=== PATIENT | male | born 1945 | race Caucasian/White ===

== ENCOUNTER → 2021-11-13 | Outpatient (CLI) | payer MEDICARE, BC, MEDICAID ==
[2021-11-13 09:27] LABS: CALCIUM 9.5 mg/dL (8.3-10.5); POTASSIUM 3.5 mmol/L (3.5-5.1)
== END ==
LOC: LAB 06:45
PROVIDERS: Family Medicine
DX: N18.30 Chronic kidney disease, stage 3 unspecified (principal)

== ENCOUNTER → 2021-11-24 | Outpatient (CLI) | payer MEDICARE, BC, MEDICAID ==
[2021-11-24 10:43] LABS: POTASSIUM 3.9 mmol/L (3.5-5.1)
[2021-11-24 10:44] LABS: ALBUMIN 3.3 g/dL (3.4-4.8)
[2021-11-24 10:45] LABS: CALCIUM 9.9 mg/dL (8.3-10.5)
[2021-11-24 10:46] LABS: TOTAL PROTEIN 7.9 g/dL (6.2-8.1)
[2021-11-24 10:48] LABS: TOTAL BILIRUBIN 0.5 mg/dL (0.2-1.2)
[2021-11-24 10:53] LABS: MAGNESIUM 1.81 mg/dL (1.60-2.60)
== END ==
LOC: LAB 10:29
PROVIDERS: Internal Medicine Adult Congenital Heart Disease
DX: E11.59 Type 2 diabetes mellitus with other circulatory complications (principal); I15.2 Hypertension secondary to endocrine disorders

== ENCOUNTER → 2021-12-08 | Outpatient (CLI) | payer MEDICARE, BC, MEDICAID ==
[2021-12-09 01:02] LABS: PH-URINE 7.5 (5.0 - 8.0); URINE APPEARANCE CLEAR; URINE BILIRUBIN NEGATIVE (NEGATIVE); URINE BLOOD NEGATIVE (NEGATIVE); URINE COLOR YELLOW; URINE GLUCOSE NEGATIVE (NEGATIVE); URINE KETONE NEGATIVE (NEGATIVE); URINE LEUKOCYTE ESTERASE NEGATIVE (NEGATIVE); URINE NITRATE NEGATIVE (NEGATIVE); URINE PROTEIN(semi-quant) TRACE (NEGATIVE); URINE UROBILINOGEN NORMAL (NORMAL); URINE WBC 0-1 /hpf (0-3)
== END ==
LOC: LAB 23:52
PROVIDERS: Family Medicine
DX: G20 Parkinson's disease (principal)

== ENCOUNTER → 2021-12-24 | Outpatient (CLI) | payer MEDICARE, BC, MEDICAID | LOC: LAB 14:06 | DX: E55.9 Vitamin D deficiency, unspecified (principal) ==

== ENCOUNTER → 2022-01-04 | Outpatient (CLI) | payer MEDICARE, MEDICAID ==
[2022-01-04 22:37] LABS: BASO # 0.04 K/mm3 (0.02-0.10); EOS # 0.31 K/mm3 (0.04-0.40); EOS % 4.2 % (0.0-4.0); HEMATOCRIT 39.6 % (42.0-52.0); HEMOGLOBIN 13.1 g/dL (13.5-18.0); LYMPH# 1.81 K/mm3 (1.50-4.00); MEAN CELL VOLUME 91 fl (78-100); MEAN CORPUSCULAR HEMOGLOBIN 30 pg (27-31); MEAN CORPUSCULAR HGB CONC 33 g/dL (33-37); MEAN PLATELET VOLUME 11.1 fl (7.4-10.4); MONO # 0.72 K/mm3 (0.20-0.80); NEU # 4.47 K/mm3 (1.40-6.50); PLATELET COUNT 181 K/mm3 (130-400); RED BLOOD COUNT 4.37 M/mm3 (4.20-5.60); RED CELL DISTRIBUTION WIDTH 14.1 % (11.5-14.5); WHITE BLOOD COUNT 7.4 K/mm3 (4.8-10.8)
[2022-01-04 22:41] LABS: ALBUMIN 2.9 g/dL (3.4-4.8); POTASSIUM 3.5 mmol/L (3.5-5.1)
[2022-01-04 22:43] LABS: CALCIUM 9.2 mg/dL (8.3-10.5)
[2022-01-04 22:44] LABS: TOTAL PROTEIN 6.6 g/dL (6.2-8.1)
[2022-01-04 22:46] LABS: TOTAL BILIRUBIN 0.4 mg/dL (0.2-1.2)
[2022-01-04 23:36] LABS: URINE APPEARANCE CLOUDY; URINE BILIRUBIN NEGATIVE (NEGATIVE); URINE BLOOD 50 ery/uL (NEGATIVE); URINE COLOR YELLOW; URINE GLUCOSE NEGATIVE (NEGATIVE); URINE KETONE NEGATIVE (NEGATIVE); URINE LEUKOCYTE ESTERASE 2+ (NEGATIVE); URINE NITRATE NEGATIVE (NEGATIVE); URINE PROTEIN(semi-quant) 3+ (NEGATIVE); URINE UROBILINOGEN NORMAL (NORMAL)
[2022-01-04 23:37] LABS: URINE WBC >50 /hpf (0-3)
== END ==
LOC: LAB 22:09
PROVIDERS: Family Medicine
DX: E11.21 Type 2 diabetes mellitus with diabetic nephropathy (principal); I95.9 Hypotension, unspecified; I50.9 Heart failure, unspecified; R41.82 Altered mental status, unspecified

== ENCOUNTER → 2022-01-26 | Outpatient (CLI) | payer MEDICARE, MEDICAID ==
[2022-01-26 16:01] LABS: URINE APPEARANCE HAZY; URINE BILIRUBIN NEGATIVE (NEGATIVE); URINE BLOOD TRACE (NEGATIVE); URINE COLOR YELLOW; URINE KETONE NEGATIVE (NEGATIVE); URINE LEUKOCYTE ESTERASE 2+ (NEGATIVE); URINE NITRATE NEGATIVE (NEGATIVE); URINE PROTEIN(semi-quant) NEGATIVE (NEGATIVE); URINE UROBILINOGEN NORMAL (NORMAL); URINE WBC 31-50 /hpf (0-3)
== END ==
LOC: LAB 14:55
PROVIDERS: Family Medicine
DX: F03.91 Unspecified dementia, unspecified severity, with behavioral disturbance (principal); N39.0 Urinary tract infection, site not specified

== ENCOUNTER → 2022-02-24 | Outpatient (CLI) | payer MEDICARE, MEDICAID ==
[~2022-02-24] MED LIST: ACETAMINOPHEN325 M1 PO; ADULT ASPIRIN R81 MG PO; ALLER-FLO15.8 ML NS; ARICEPT10 M1 PO; ARICEPT5 M1 PO; BENTYL 20MG20 MG/TAB PO; CALCIUM CARBONATE PO; CLONAZEPAM0.5 M1 PO; DEBROX OT; DIVALPROEX SOD250 MG PO; DULCOLAX S10 MG/SUPP RC; FLEET ENEM1 BOT/133 RC; FLOMAX0.4 MG PO; GOOD NEIGH1200 MG/15 PO; HYDROCORTISONE1 EAC1 TP; KLONOPIN 1MG1 MG PO; LANTUS SOLOS100 U/ML SQ; LASIX20 M1 PO; LEXAPRO 10MG10 MG PO; LIDODERM1 EACH TP; LIPITOR 40MG TA40 MG PO; LOPRESSOR 225 MG/TAB PO; MELATIN 3 MG-11 TAB PO; NEURONTIN100 M1 PO; NOVOLOG 100U100 U/ML; NOVOLOG 100U100 U/ML SQ; NYSTATIN OINTME15 GM TOP; PACERONE200 MG PO; PRILOSEC OTC20 MG PO; SEROQUEL 2525 MG/TAB PO; SINEMET 25-1001 EACH PO; SULFAZINE500 MG PO; VITAMIN D3125 MC3 PO; VOLTAREN ARTHRI20 GM TP
[2022-02-24 14:04] LABS: POTASSIUM 4.1 mmol/L (3.5-5.1)
[2022-02-24 14:05] LABS: ALBUMIN 3.2 g/dL (3.4-4.8)
[2022-02-24 14:06] LABS: CALCIUM 9.3 mg/dL (8.3-10.5)
[2022-02-24 14:07] LABS: TOTAL PROTEIN 6.5 g/dL (6.2-8.1)
[2022-02-24 14:09] LABS: TOTAL BILIRUBIN 0.4 mg/dL (0.2-1.2)
[2022-02-24 14:14] LABS: MAGNESIUM 1.53 mg/dL (1.60-2.60)
== END ==
LOC: LAB 12:57
PROVIDERS: Family Medicine
DX: I48.91 Unspecified atrial fibrillation (principal); E83.42 Hypomagnesemia

== ENCOUNTER 2022-03-23 19:11 | Emergency (ER) | payer MEDICARE, MEDICAID ==
[~2022-03-23] VITALS: Ht 177.8 cm; Wt 95.0 kg
[2022-03-23] MEDS ORDERED: ACETAMINOPHEN325 M1 PO (19:47)
[2022-03-23] MEDS ORDERED: ADULT ASPIRIN R81 MG PO (19:48)
[2022-03-23] MEDS ORDERED: PACERONE200 MG PO (19:48)
[2022-03-23] MEDS ORDERED: ARICEPT5 M1 PO (19:48)
[2022-03-23] MEDS ORDERED: LIPITOR 40MG TA40 MG PO (19:48)
[2022-03-23] MEDS ORDERED: ARICEPT10 M1 PO (19:48)
[2022-03-23] MEDS ORDERED: CALCIUM CARBONATE PO (19:49)
[2022-03-23] MEDS ORDERED: SINEMET 25-1001 EACH PO (19:50)
[2022-03-23] MEDS ORDERED: DEBROX OT (19:51)
[2022-03-23] MEDS ORDERED: BENTYL 20MG20 MG/TAB PO (19:52)
[2022-03-23] MEDS ORDERED: DIVALPROEX SOD250 MG PO (19:52)
[2022-03-23] MEDS ORDERED: DULCOLAX S10 MG/SUPP RC (19:52)
[2022-03-23] MEDS ORDERED: FLEET ENEM1 BOT/133 RC (19:53)
[2022-03-23] MEDS ORDERED: LEXAPRO 10MG10 MG PO (19:53)
[2022-03-23] MEDS ORDERED: NEURONTIN100 M1 PO (19:54)
[2022-03-23] MEDS ORDERED: LASIX20 M1 PO (19:54)
[2022-03-23] MEDS ORDERED: ALLER-FLO15.8 ML NS (19:54)
[2022-03-23] MEDS ORDERED: LANTUS SOLOS100 U/ML SQ (19:55)
[2022-03-23] MEDS ORDERED: HYDROCORTISONE1 EAC1 TP (19:55)
[2022-03-23] MEDS ORDERED: LIDODERM1 EACH TP (19:56)
[2022-03-23] MEDS ORDERED: CLONAZEPAM0.5 M1 PO (19:56)
[2022-03-23] MEDS ORDERED: KLONOPIN 1MG1 MG PO (19:56)
[2022-03-23] MEDS ORDERED: LOPRESSOR 225 MG/TAB PO (19:57)
[2022-03-23] MEDS ORDERED: MELATIN 3 MG-11 TAB PO (19:57)
[2022-03-23] MEDS ORDERED: NOVOLOG 100U100 U/ML SQ ×2 (19:58→19:59)
[2022-03-23] MEDS ORDERED: GOOD NEIGH1200 MG/15 PO (19:58)
[2022-03-23] MEDS ORDERED: NOVOLOG 100U100 U/ML (19:59)
[2022-03-23] MEDS ORDERED: SULFAZINE500 MG PO (20:00)
[2022-03-23] MEDS ORDERED: PRILOSEC OTC20 MG PO (20:00)
[2022-03-23] MEDS ORDERED: NYSTATIN OINTME15 GM TOP (20:00)
[2022-03-23] MEDS ORDERED: SEROQUEL 2525 MG/TAB PO (20:00)
[2022-03-23] MEDS ORDERED: VITAMIN D3125 MC3 PO (20:01)
[2022-03-23] MEDS ORDERED: FLOMAX0.4 MG PO (20:01)
[2022-03-23] MEDS ORDERED: VOLTAREN ARTHRI20 GM TP (20:02)
[2022-03-23 20:14] LABS: BASO # 0.04 K/mm3 (0.02-0.10); EOS % 3.1 % (0.0-4.0); HEMATOCRIT 45.7 % (42.0-52.0); HEMOGLOBIN 14.6 g/dL (13.5-18.0); LYMPH# 1.77 K/mm3 (1.50-4.00); MEAN CELL VOLUME 94 fl (78-100); MEAN CORPUSCULAR HEMOGLOBIN 30 pg (27-31); MEAN CORPUSCULAR HGB CONC 32 g/dL (33-37); MEAN PLATELET VOLUME 9.7 fl (7.4-10.4); MONO # 0.73 K/mm3 (0.20-0.80); NEU # 3.66 K/mm3 (1.40-6.50); PLATELET COUNT 150 K/mm3 (130-400); RED BLOOD COUNT 4.88 M/mm3 (4.20-5.60); RED CELL DISTRIBUTION WIDTH 15.6 % (11.5-14.5); WHITE BLOOD COUNT 6.5 K/mm3 (4.8-10.8)
[2022-03-23 20:28] LABS: ALBUMIN 3.5 g/dL (3.4-4.8); POTASSIUM 4.9 mmol/L (3.5-5.1); PROTHROMBIN TIME 11.7 SECONDS (9.0-12.0); SODIUM 140 mmol/L (136-145)
[2022-03-23 20:31] LABS: GLUCOSE 200 mg/dL (75-110); TOTAL PROTEIN 6.9 g/dL (6.2-8.1)
[2022-03-23 20:32] LABS: CARBON DIOXIDE 27 mmol/L (23-31)
[2022-03-23 20:33] LABS: TOTAL BILIRUBIN 0.3 mg/dL (0.2-1.2)
[2022-03-23 20:36] LABS: AST-SGOT 15 U/L (5-34)
[2022-03-23 20:38] LABS: ALT/SGPT < 6 U/L (0-55)
[2022-03-23 21:55] VITALS: BP 136/86
== END 2022-03-23 21:55 | disposition home or self-care (01) ==
LOC: ED 19:11
PROVIDERS: Physician Assistant
DX: M54.2 Cervicalgia (principal); M25.512 Pain in left shoulder; W05.0XXA Fall from non-moving wheelchair, initial encounter

== ENCOUNTER → 2022-04-14 | Outpatient (CLI) | payer MEDICARE, MEDICAID | LOC: LAB 18:45 | DX: E55.9 Vitamin D deficiency, unspecified (principal) ==

== ENCOUNTER → 2022-04-25 | Outpatient (CLI) | payer OTHER, MEDICAID ==
[2022-04-25 15:50] LABS: BASO # 0.04 K/mm3 (0.02-0.10); EOS # 0.15 K/mm3 (0.04-0.40); EOS % 2.7 % (0.0-4.0); HEMATOCRIT 39.9 % (42.0-52.0); HEMOGLOBIN 12.9 g/dL (13.5-18.0); MEAN CELL VOLUME 95 fl (78-100); MEAN CORPUSCULAR HEMOGLOBIN 31 pg (27-31); MEAN CORPUSCULAR HGB CONC 32 g/dL (33-37); MONO # 0.73 K/mm3 (0.20-0.80); NEU # 2.64 K/mm3 (1.40-6.50); PLATELET COUNT 168 K/mm3 (130-400); RED BLOOD COUNT 4.19 M/mm3 (4.20-5.60); RED CELL DISTRIBUTION WIDTH 16.4 % (11.5-14.5); WHITE BLOOD COUNT 5.5 K/mm3 (4.8-10.8)
[2022-04-25 15:51] LABS: ALBUMIN 3.1 g/dL (3.4-4.8); POTASSIUM 4.7 mmol/L (3.5-5.1)
[2022-04-25 15:53] LABS: CALCIUM 9.4 mg/dL (8.3-10.5)
[2022-04-25 15:54] LABS: TOTAL PROTEIN 6.1 g/dL (6.2-8.1)
[2022-04-25 15:56] LABS: TOTAL BILIRUBIN 0.3 mg/dL (0.2-1.2)
[2022-04-25 16:11] LABS: URINE APPEARANCE CLEAR; URINE BILIRUBIN NEGATIVE (NEGATIVE); URINE BLOOD NEGATIVE (NEGATIVE); URINE COLOR YELLOW; URINE KETONE NEGATIVE (NEGATIVE); URINE LEUKOCYTE ESTERASE TRACE (NEGATIVE); URINE MUCUS PRESENT (NOT PRESENT); URINE NITRATE NEGATIVE (NEGATIVE); URINE PROTEIN(semi-quant) NEGATIVE (NEGATIVE); URINE UROBILINOGEN NORMAL (NORMAL)
== END ==
LOC: LAB 13:27
PROVIDERS: Family Medicine
DX: N18.30 Chronic kidney disease, stage 3 unspecified (principal)

== ENCOUNTER → 2022-12-09 | Outpatient (CLI) | payer MEDICARE, MEDICAID ==
[2022-12-09 05:08] LABS: URINE COLOR YELLOW
[2022-12-09 05:09] LABS: URINE APPEARANCE HAZY; URINE BILIRUBIN NEGATIVE (NEGATIVE); URINE BLOOD NEGATIVE (NEGATIVE); URINE GLUCOSE NEGATIVE (NEGATIVE); URINE KETONE NEGATIVE (NEGATIVE); URINE LEUKOCYTE ESTERASE TRACE (NEGATIVE); URINE NITRATE NEGATIVE (NEGATIVE); URINE PROTEIN(semi-quant) 1+ (NEGATIVE); URINE UROBILINOGEN NORMAL (NORMAL)
== END ==
LOC: LAB 04:05
PROVIDERS: Family Medicine
DX: N39.0 Urinary tract infection, site not specified (principal)

== ENCOUNTER → 2023-01-13 | Outpatient (CLI) | payer MEDICARE, MEDICAID ==
[2023-01-13 18:09] LABS: FOLATE (FOLIC ACID) 3.9 ng/mL (2.0-20.0)
== END ==
LOC: LAB 05:15
PROVIDERS: Family Medicine
DX: D53.9 Nutritional anemia, unspecified (principal)

== ENCOUNTER → 2023-01-16 | Outpatient (CLI) | payer MEDICARE, MEDICAID | LOC: LAB 14:17 | DX: E11.21 Type 2 diabetes mellitus with diabetic nephropathy (principal); E11.65 Type 2 diabetes mellitus with hyperglycemia ==

== ENCOUNTER → 2023-01-19 | Outpatient (CLI) | payer MEDICARE, MEDICAID | LOC: LAB 05:20 | DX: I50.9 Heart failure, unspecified (principal); E11.21 Type 2 diabetes mellitus with diabetic nephropathy; E11.22 Type 2 diabetes mellitus with diabetic chronic kidney disease; N18.30 Chronic kidney disease, stage 3 unspecified ==

== ENCOUNTER → 2023-01-21 | Outpatient (CLI) | payer MEDICARE, MEDICAID ==
[2023-01-21 09:17] LABS: URINE APPEARANCE HAZY; URINE BILIRUBIN NEGATIVE (NEGATIVE); URINE BLOOD TRACE (NEGATIVE); URINE COLOR YELLOW; URINE GLUCOSE NEGATIVE (NEGATIVE); URINE KETONE NEGATIVE (NEGATIVE); URINE LEUKOCYTE ESTERASE TRACE (NEGATIVE); URINE NITRATE NEGATIVE (NEGATIVE); URINE PROTEIN(semi-quant) TRACE (NEGATIVE); URINE UROBILINOGEN NORMAL (NORMAL); URINE WBC 0-1 /hpf (0-3)
== END ==
LOC: LAB 07:16
PROVIDERS: Family Medicine
DX: N39.0 Urinary tract infection, site not specified (principal)

== ENCOUNTER → 2023-01-24 | Outpatient (CLI) | payer MEDICARE, MEDICAID ==
[2023-01-24 08:05] LABS: URINE APPEARANCE CLEAR; URINE COLOR YELLOW
[2023-01-24 08:06] LABS: URINE BILIRUBIN NEGATIVE (NEGATIVE); URINE BLOOD NEGATIVE (NEGATIVE); URINE GLUCOSE NEGATIVE (NEGATIVE); URINE KETONE NEGATIVE (NEGATIVE); URINE LEUKOCYTE ESTERASE TRACE (NEGATIVE); URINE NITRATE NEGATIVE (NEGATIVE); URINE PROTEIN(semi-quant) TRACE (NEGATIVE); URINE UROBILINOGEN NORMAL (NORMAL)
== END ==
LOC: LAB 07:36
PROVIDERS: Family Medicine
DX: R82.71 Bacteriuria (principal); Z87.440 Personal history of urinary (tract) infections

== ENCOUNTER → 2023-02-02 | Outpatient (CLI) | payer MEDICARE, MEDICAID ==
[2023-02-02 11:21] LABS: URINE APPEARANCE CLOUDY; URINE COLOR YELLOW; URINE PROTEIN(semi-quant) TRACE (NEGATIVE)
[2023-02-02 11:22] LABS: URINE BILIRUBIN NEGATIVE (NEGATIVE); URINE BLOOD TRACE (NEGATIVE); URINE GLUCOSE NEGATIVE (NEGATIVE); URINE KETONE NEGATIVE (NEGATIVE); URINE LEUKOCYTE ESTERASE TRACE (NEGATIVE); URINE NITRATE NEGATIVE (NEGATIVE); URINE UROBILINOGEN NORMAL (NORMAL)
[2023-02-02 11:23] LABS: URINE MUCUS PRESENT (NOT PRESENT)
== END ==
LOC: LAB 10:34
PROVIDERS: Family Medicine
DX: N39.0 Urinary tract infection, site not specified (principal)